=== PATIENT | male | born 1980 | race Hispanic/Latino ===

== ENCOUNTER 2018-04-16 11:59 | Emergency (ER) | payer OTHER ==
[2018-04-16 12:06] VITALS: RESP 18
--- NOTE | 2018-04-16 13:11 | ED PDOC ---
HPI: General Adult Time Seen by Provider: 04/16/18 13:07 Chief Complaint (Nursing): Dizziness/Lightheaded Chief Complaint (Provider): WEAKNESS History Per: Patient (37 Y/O MALE WITH LEFT DARRELL-RECTAL ABSCESS NOTED X 6 DAYS; HERE FOR TACTILE FEVER/FEELING FLUSHED AND UNWELL THIS MORNING. PATIENT STATES HE WAS SEEN AT [facility] AND HAD ABSCESS DRAINED 1 DAY AGO WITH CULTURE SENT. IS CURRENTLY ON FLAGLY/KEFLEX. STATES HE CALLED [facility] AND WAS ADVISED TO COME TO ED FOR EVAL.) Past Medical History Reviewed: Historical Data, Nursing Documentation, Vital Signs Vital Signs: Last Vital Signs Temp 97.7 F 04/16/18 12:04 Pulse 102 H 04/16/18 12:04 Resp 18 04/16/18 12:04 BP 148/94 H 04/16/18 12:04 Pulse Ox 97 04/16/18 12:04 - Family History Family History: States: No Known Family Hx - Home Medications Home Medications: Ambulatory Orders Medication Instructions Recorded Omeprazole Magnesium [Prilosec Otc] 20 mg PO DAILY #7 tablet. 04/16/18 RX: Cephalexin [Keflex] 500 mg PO QID #28 capsule 04/16/18 RX: Naproxen 375 mg PO Q8 PRN #21 tablet 04/16/18 Sulfamethoxazole/Trimethoprim 2 tab PO BID #28 tab 04/16/18 [Bactrim DS 800 mg-160 mg] - Allergies Allergies/Adverse Reactions: Allergies Allergy/AdvReac Type Severity Reaction Status Date / Time codeine Allergy REDNESS Verified 04/16/18 12:02 Review of Systems ROS Statement: Except As Marked, All Systems Reviewed And Found Negative Physical Exam - Reviewed Nursing Documentation Reviewed: Yes Vital Signs Reviewed: Yes - Physical Exam Appears: Positive for: Well, Non-toxic, No Acute Distress Head Exam: Positive for: ATRAUMATIC, NORMAL INSPECTION, NORMOCEPHALIC Skin: Positive for: Normal Color, Warm, DRY Eye Exam: Positive for: EOMI, Normal appearance, PERRL ENT: Positive for: Normal ENT Inspection Neck: Positive for: Normal, Painless ROM Cardiovascular/Chest: Positive for: Regular Rate, Rhythm Respiratory: Positive for: CNT, Normal Breath Sounds Gastrointestinal/Abdominal: Positive for: Normal Exam, Soft Back: Positive for: Normal Inspection Rectal: Positive for: Other (1.5 CM INCISION NOTED LEFT GLUTEAL CREASE 3 CM LATERAL OF RECTUM. NO OBVIOUS SIGNS OF CELLULITIS; ABSCESS IS NOT CURRENTLY DRAINING.) Extremity: Positive for: Normal ROM Neurologic/Psych: Positive for: Alert, Oriented - Laboratory Results Result Diagrams: 04/16/18 14:45 04/16/18 15:35 - ECG O2 Sat by Pulse Oximetry: 97 - Progress ED Course And Treament: CT PELVIS: IMPRESSION: Findings are most compatible with cellulitis in the left paramedian gluteal santos bcutaneous tissue. Also noted is a small focus of air which is of uncertain etiology and clinical significance no drainable fluid collection. PATIENT ADVISED INCREASE BACTRIM TO 2 TAB PO BID AND WE WILL ADD KEFLEX 500MG QID X 7 DAY.S ADVISED TO STOP FLAGYL. WILL F/U WITH URGENT CARE FOR FURTHER EVALUATION OF WOUND CX RESULTS. ADVISED STOP TRAMADOL THIS MAY HAVE CAUSED SENSATION OF FEELING FLUSHED EARLIER TODAY. WILL WRITE NAPROXEN FOR PAIN. Disposition - Clinical Impression Clinical Impression: Cellulitis and abscess of buttock - Patient ED Disposition Is Patient to be Admitted: No - Disposition Disposition: Routine/Home Disposition Time: 17:28 Condition: FAIR Additional Instructions: STOP FLAGYL. START BACTRIM CONTINUE WITH KEFLEX IN CONJUNCTION WITH BACTRIM. R/U WITH URGENT CARE FOR EVALUATION OF WOUND CULTURE RESULTS. Prescriptions: RX: Cephalexin [Keflex] 500 mg PO QID #28 capsule RX: Naproxen 375 mg PO Q8 PRN #21 tablet PRN Reason: Pain, Moderate (4-7) Omeprazole Magnesium [Prilosec Otc] 20 mg PO DAILY #7 tablet. Sulfamethoxazole/Trimethoprim [Bactrim DS 800 mg-160 mg] 2 tab PO BID #28 tab Instructions: Cellulitis and Erysipelas (Skin Infections) Forms: [facility] ED School/Work Excuse
[2018-04-16 15:13] LABS: BASO # 0.1 K/uL (0.0-0.2); EOS # 0.1 K/uL (0.0-0.7); EOS % 1.4 % (0.0-4.0); HEMOGLOBIN 14.4 g/dL (12.0-18.0); LYMPH # 1.7 K/uL (1.0-4.3); LYMPH % 17.5 % (20.0-40.0); MEAN CELL VOLUME 85.7 fl (80.0-94.0); MEAN CORPUSCULAR HEMOGLOBIN 29.7 pg (27.0-31.0); MEAN CORPUSCULAR HGB CONC 34.7 g/dL (33.0-37.0); MONO # 0.7 K/uL (0.0-0.8); MONO % 7.4 % (0.0-10.0); NEUT # 6.8 K/uL (1.8-7.0); NEUT % 72.7 % (50.0-75.0); RBC 4.86 Mil/uL (4.40-5.90); RED CELL DISTRIBUTION WIDTH 13.1 % (11.5-14.5); WHITE BLOOD COUNT 9.4 K/uL (4.8-10.8)
[2018-04-16] MEDS ORDERED: Iohexol 300 100 ML IJ ONE (15:56)
[2018-04-16] MEDS ORDERED: Sodium Chloride 0.9% 50 ML IV ONE (15:56)
[2018-04-16 16:06] LABS: ALBUMIN 3.7 g/dL (3.5-5.0); ALT/SGPT 71 U/L (21-72); AST/SGOT 53 U/L (17-59); BLOOD UREA NITROGEN 10 mg/dl (9-20); CALCIUM 9.2 mg/dL (8.4-10.2); GFR NON-AFRICAN AMERICAN > 60
--- NOTE | 2018-04-16 17:05 | CT ---
Date of service: 04/16/2018 PROCEDURE: CT Pelvis without contrast HISTORY: ute gluteal/ute rectal abscess COMPARISON: None available. TECHNIQUE: Contiguous axial images of the pelvis . No intravenous or oral contrast given. Coronal and sagittal reformats generated. Radiation dose: Total exam DLP = 1752.18 mGy-cm. This CT exam was performed using one or more of the following dose reduction techniques: Automated exposure control, adjustment of the mA and/or kV according to patient size, and/or use of iterative reconstruction technique. FINDINGS: BLADDER: Partially distended and grossly normal in appearance. REPRODUCTIVE ORGANS: The prostate gland is normal in size with central coarse calcifications. VISUALIZED BOWEL: The visualized small bowel loops are normal in caliber. There is mild sigmoid diverticulosis without CT evidence for acute diverticulitis. PERITONEUM: Unremarkable, as visualized. No free fluid. No free air. LYMPH NODES: For her no enlarged lymph nodes. BONES: No fracture or focal lesion. VASCULATURE: Unremarkable. OTHER FINDINGS: There is inflammatory soft tissue and fat stranding in the left paramedian gluteal fat. There also a small focus of air in the left paramedian gluteal soft tissues. No definite evidence for fluid collection. IMPRESSION: Findings are most compatible with cellulitis in the left paramedian gluteal subcutaneous tissue. Also noted is a small focus of air which is of uncertain etiology and clinical significance no drainable fluid collection.
[2018-04-16 17:29] VITALS: O2SAT 97
[2018-04-16 18:20] VITALS: BP 126/80; PULSE 95; TEMP 99.5
== END 2018-04-16 18:25 | disposition home or self-care (01) ==
LOC: H.ER 11:59
DX: L02.31 Cutaneous abscess of buttock (principal); L03.317 Cellulitis of buttock
CPT/HCPCS: 10060; 72192; 80053; 85025; 99283; Q9967